=== PATIENT | female | born 1970 | race Caucasian/White ===

== ENCOUNTER 2017-02-14 17:25 | Emergency (ER) | payer BC ==
[~2017-02-14] VITALS: Ht 167.6 cm; Wt 105.6 kg
[~2017-02-14 17:25] MED LIST: DEXTROAMP-AMPHE15 MG PO; DEXTROAMP-AMPHE25 MG PO; ESCITALOPRAM OX20 MG PO; FIORICET 50-301 EACH PO; NAPROSYN500 MG PO; NAPROXEN500 MG PO; PAXIL20 MG PO; PERCOCET 5/31 TABLET PO; PRAVASTATIN SOD40 MG PO; VALIUM5 MG PO
[2017-02-14 18:09] LABS: HEMATOCRIT 39.7 % (36.0-46.0); MCV 88.2 FL (83-99); MEAN PLAT.VOLUME 9.7 uM^3 (9.5-12.4); PLATELET COUNT 323 K/uL (156-360); RBC DIS.WIDTH-CV 11.9 % (11.8-14.6); RBC DIS.WIDTH-SD 38.9 % (39-53); WHITE BLOOD COUNT 9.9 K/uL (4.1-10.2)
[2017-02-14 18:18] LABS: CHLORIDE 109 mEq/L (99-109); POTASSIUM 3.5 mEq/L (3.7-5.4); SODIUM 141 mEq/L (136-147)
[2017-02-14 18:20] LABS: GLUCOSE 130 mg/dL (70-99)
[2017-02-14 18:21] LABS: ANION GAP 9 MEQ/L (2-14)
[2017-02-14 18:22] LABS: TOTAL BILIRUBIN 0.3 mg/dL (0.0-1.0)
[2017-02-14 18:23] LABS: ALKALINE PHOSPHATASE 75 IU/L (3-129)
[2017-02-14 18:24] LABS: GFR ESTIMATE (CALCULATED) > 59 mL/min/
[2017-02-14 18:25] LABS: UREA NITROGEN (BUN) 12 mg/dL (9-23)
[2017-02-14 18:32] LABS: QUANTITATIVE HCG < 4.0 MIU/ML
[2017-02-14 22:29] LABS: ADD MIUA? NO; BILIRUBIN NEGATIVE; BLOOD NEGATIVE; COLOR STRAW ((YELLOW)); GLUCOSE (STRIP) NEGATIVE; KETONES NEGATIVE; LEUKOCYTES NEGATIVE; NITRITE NEGATIVE; PROTEIN (STRIP) NEGATIVE; SPECIFIC GRAVITY 1.039 (1.000-1.030); UCUL ADDED? NO; UROBILINOGEN 0.2 MG/DL (0.2-1.0)
[2017-02-14] MEDS ORDERED: BENTYL10 MG PO (22:54)
[2017-02-14 23:06] VITALS: BP 135/78
== END 2017-02-14 23:06 | disposition home or self-care (01) ==
LOC: EME 17:25
DX: R10.30 Lower abdominal pain, unspecified (principal); F32.9 Major depressive disorder, single episode, unspecified; Z97.5 Presence of (intrauterine) contraceptive device; Z87.891 Personal history of nicotine dependence
CPT/HCPCS: 74177; 76856; 80053; 81003; 84702; 85027; 99281; 99284; J1885; J7030